=== PATIENT | male | born 1940 | race Caucasian/White ===

== ENCOUNTER 2016-03-29 | Outpatient (CLI) | payer MEDICARE | END 2016-03-29 14:10 | disposition critical access hospital (66) | DX: R55 Syncope and collapse (principal) | CPT/HCPCS: A0425; A0427 ==

== ENCOUNTER 2016-03-29 14:29 | Emergency (ER) | payer MEDICARE ==
[2016-03-29] MEDS ORDERED: SODIUM CHLORIDE 0.9% 500 ML IV ONE (14:53)
== END 2016-03-29 17:33 | disposition home or self-care (01) ==
DX: R55 Syncope and collapse (principal); E86.0 Dehydration; I12.0 Hypertensive chronic kidney disease with stage 5 chronic kidney disease or end stage renal disease; N18.6 End stage renal disease; Z99.2 Dependence on renal dialysis; I48.91 Unspecified atrial fibrillation; I48.92 Unspecified atrial flutter; R94.31 Abnormal electrocardiogram [ECG] [EKG]; Z79.82 Long term (current) use of aspirin; Z86.73 Personal history of transient ischemic attack (TIA), and cerebral infarction without residual deficits; Z87.19 Personal history of other diseases of the digestive system

== ENCOUNTER 2016-07-01 16:09 | Emergency (ER) | payer MEDICARE ==
[2016-07-01] MEDS ORDERED: SODIUM CHLORIDE 0.9% 500 ML IV ONE (16:20)
== END 2016-07-01 18:42 | disposition home or self-care (01) ==
DX: R53.1 Weakness (principal); S93.601A Unspecified sprain of right foot, initial encounter; W20.8XXA Other cause of strike by thrown, projected or falling object, initial encounter; I10 Essential (primary) hypertension; N28.9 Disorder of kidney and ureter, unspecified; I12.9 Hypertensive chronic kidney disease with stage 1 through stage 4 chronic kidney disease, or unspecified chronic kidney disease; N18.9 Chronic kidney disease, unspecified; Z99.2 Dependence on renal dialysis; I48.91 Unspecified atrial fibrillation; I48.92 Unspecified atrial flutter; Z79.82 Long term (current) use of aspirin; Z86.73 Personal history of transient ischemic attack (TIA), and cerebral infarction without residual deficits

== ENCOUNTER 2016-07-03 12:01 | Outpatient (CLI) | payer MEDICARE | END 2016-07-03 12:02 | disposition critical access hospital (66) | DX: R53.1 Weakness (principal) | CPT/HCPCS: A0425; A0429 ==

== ENCOUNTER 2016-07-03 12:26 | Inpatient (IN) | payer MEDICARE ==
[2016-07-03 13:09] LABS: BASOPHILS # (AUTO) 0.1 10^3/uL (0.0-0.1); EOSINOPHILS # (AUTO) 0.1 10^3/uL (0.0-0.7); EOSINOPHILS % (AUTO) 2.3 %; HCT - HEMATOCRIT 26.9 % (42.0-52.0); LYMPHOCYTES # (AUTO) 0.2 10^3/uL (1.5-3.5); LYMPHOCYTES % (AUTO) 4.2 %; MEAN CORPUSCULAR HEMOGLOBIN 35.7 pg (27.0-31.0); MEAN CORPUSCULAR HGB CONC 33.6 g/dL (32.0-36.0); MEAN CORPUSCULAR VOLUME 106.1 fL (80.0-94.0); MEAN PLATELET VOLUME 8.6 fL (7.4-11.4); MONOCYTES # (AUTO) 0.3 10^3/uL (0.0-1.0); MONOCYTES % (AUTO) 5.7 %; NEUTROPHILS # (AUTO) 5.1 10^3/uL (1.5-6.6); NEUTROPHILS % (AUTO) 86.8 %; NUCLEATED RED BLOOD CELLS AUTO 0.1 /100WBC; RED BLOOD COUNT 2.54 10^6/uL (4.70-6.10); RED CELL DISTRIBUTION WIDTH 17.8 % (12.0-15.0); UNCORRECTED WHITE BLOOD COUNT 5.8 x10^3/uL; WHITE BLOOD COUNT 5.8 x10^3/uL (4.8-10.8)
[2016-07-03 13:17] LABS: INR 3.8 (0.8-1.2); PT - PROTHROMBIN TIME 42.6 secs (9.9-12.6)
[2016-07-03 13:22] LABS: BILIRUBIN,TOTAL 0.8 mg/dL (0.2-1.0); CALCIUM 9.5 mg/dL (8.5-10.3); CREATININE 5.6 mg/dL (0.6-1.2); POTASSIUM 4.2 mmol/L (3.5-5.0); TOTAL PROTEIN 6.7 g/dL (6.7-8.2)
[2016-07-03] MEDS ORDERED: ACETAMINOPHEN 500 MG TABLET PO STA (13:22)
[2016-07-03] MEDS ORDERED: ACETAMINOPHEN 500 MG TABLET PO ONE (13:24)
--- NOTE | 2016-07-03 13:25 | ED Physician Documentation ---
History of Present Illness - Stated complaint Stated Complaint: WEAKNESS - Chief complaint Chief Complaint: General - History obtained from History obtained from: Patient, EMS - Additonal information Additional information: 76 yo male, dialysis dependent, MWF, nephro at [facility]. Fell last night,unable to get back up d/t weakness general. Feels achy. Unable to sit up unassisted. he is on warfarin for AFIB Review of Systems Ten Systems: 10 systems reviewed and negative Constitutional: reports: Myalgias, Fatigue. denies: Fever, Chills Eyes: denies: Loss of vision, Decreased vision Ears: denies: Drainage/discharge Nose: denies: Rhinorrhea / runny nose, Congestion Throat: denies: Sore throat Cardiac: denies: Chest pain / pressure, Palpitations Respiratory: denies: Dyspnea, Cough GI: denies: Abdominal Pain, Nausea, Vomiting, Bloody / black stool PD PAST MEDICAL HISTORY - Past Medical History Cardiovascular: Hypertension, Atrial flutter, Atrial fibrillation, Murmur, Other Neuro: CVA Endocrine/Autoimmune: Other GI: GI bleed, Other : Dialysis, Renal insuffiency, Other Psych: Depression - Past Surgical History Past Surgical History: Yes - Present Medications Home Medications: Ambulatory Orders Medication Instructions Recorded Confirmed Allopurinol 300 mg PO DAILY 07/27/13 07/03/16 Aspirin Chewable [[place] 81 mg PO DAILY 07/27/13 10/08/13 Aspirin] Calcitriol 0.25 mg PO DAILY 07/27/13 10/08/13 Cholecalciferol (Vitamin D3) 1,000 unit PO DAILY 07/27/13 10/08/13 [Vitamin D] Doxazosin [Cardura] 2 mg PO DAILY 07/27/13 10/08/13 Folic Acid 1 mg PO DAILY 07/27/13 10/08/13 Metoprolol Succinate 50 mg PO DAILY 07/27/13 10/08/13 Mirtazapine 45 mg PO DAILY 07/27/13 07/03/16 Pantoprazole Sodium 40 mg PO DAILY 07/27/13 10/08/13 Simvastatin 20 mg PO DAILY 07/27/13 10/08/13 Vit B Cmplx 3/FA/Vit C/Biotin 1 tab PO DAILY 07/27/13 10/08/13 [Nephro-Gabriel Rx Tablet] Vitamin B Complex 1 tab PO DAILY 07/27/13 10/08/13 Warfarin [Coumadin] 10 mg PO DAILY 07/27/13 07/03/16 buPROPion [Wellbutrin Sr] 150 mg PO DAILY 07/27/13 10/08/13 levETIRAcetam [Keppra] 500 07/03/16 - Allergies Allergies/Adverse Reactions: Allergies Allergy/AdvReac Type Severity Reaction Status Date / Time No Known Drug Allergies Allergy Verified 03/29/16 14:30 - Social History Does the pt smoke?: No Smoking Status: Never smoker Does the pt drink ETOH?: No Does the pt have substance abuse?: No - Family History Family history: reports: Non contributory - Immunizations Immunizations are current?: No - POLST Patient has POLST: No PD ED PE NORMAL - Vitals Vital signs reviewed: Yes - General General: Alert and oriented X 3, Other (PALE< GENERALLY WEAK< CANNOT SIT UP UNASSISTED) - HEENT HEENT: PERRL, EOMI - Neck Neck: Supple, no meningeal sign, No bony TTP - Cardiac Cardiac: No murmur, Other (IRREGULAR) - Respiratory Respiratory: No respiratory distress, Other (DIMINISHED AT BASES) - Abdomen Abdomen: Soft, Non tender - Back Back: No CVA TTP, No spinal TTP - Derm Derm: Normal color, Warm and dry - Extremities Extremities: No edema, No calf tenderness / cord - Neuro Neuro: Alert and oriented X 3, Normal speech - Psych Psych: Normal mood, Normal affect Results - Vitals Vitals: Vital Signs - 24 hr 07/03/16 12:29 Temperature 36.4 C L Heart Rate 108 H Respiratory 16 Rate Blood Pressure 119/69 O2 Saturation 97 Oxygen O2 Source Room air - Labs Labs: Laboratory Tests 07/03/16 07/03/16 07/03/16 12:25 12:25 12:25 WBC 5.8 RBC 2.54 L Hgb 9.0 L Hct 26.9 L MCV 106.1 H MCH 35.7 H MCHC 33.6 RDW 17.8 H Plt Count 182 MPV 8.6 Neut # 5.1 Lymph # 0.2 L [place] # 0.3 Eos # 0.1 Baso # 0.1 Absolute Nucleated RBC 0.01 Nucleated RBCs 0.1 PT 42.6 H INR 3.8 H Sodium 139 Potassium 4.2 Chloride 97 L Carbon Dioxide 28 Anion Gap 14.0 H BUN 36 H Creatinine 5.6 H Estimated GFR (MDRD) 10 L Glucose 184 H Calcium 9.5 Total Bilirubin 0.8 AST 16 ALT 14 Alkaline Phosphatase 46 Total Creatine Kinase 87 CK-MB (CK-2) Troponin I Total Protein 6.7 Albumin 3.3 Globulin 3.4 Albumin/Globulin Ratio 1.0 Lipase 34 07/03/16 12:25 WBC RBC Hgb Hct MCV MCH MCHC RDW Plt Count MPV Neut # Lymph # [place] # Eos # Baso # Absolute Nucleated RBC Nucleated RBCs PT INR Sodium Potassium Chloride Carbon Dioxide Anion Gap BUN Creatinine Estimated GFR (MDRD) Glucose Calcium Total Bilirubin AST ALT Alkaline Phosphatase Total Creatine Kinase CK-MB (CK-2) 2.1 Troponin I < 0.04 Total Protein Albumin Globulin Albumin/Globulin Ratio Lipase - Rads (name of study) CT Head and CXR Radiology: EMP read contemporaneously (NAD, cardiomegaly s/p AV replacement) PD MEDICAL DECISION MAKING - ED course ED course: 76-year-old gentleman with multiple comorbidities including A. fib on warfarin and dialysis dependent presents with unexplained generalized weakness. He has stable anemia, no significant electrolyte abnormalities, and negative head CT and chest x-ray. He is too weak to sit up unassisted and will be placed in observation. Spoke with Dr. Leon for this at 1420. Departure - Departure Disposition: ED Place in Observation Clinical Impression: Generalized weakness Atrial fibrillation Qualifiers: Atrial fibrillation type: permanent Qualified Code(s): I48.2 - Chronic atrial fibrillation Condition: Stable
[2016-07-03 13:27] LABS: TROPONIN I < 0.04 ng/mL (<0.49)
[2016-07-03 13:29] LABS: CREATINE KINASE MB 2.1 ng/mL (0.6-6.3)
--- NOTE | 2016-07-03 14:12 | CT Preliminary Report ---
Exam: CT Head W/O IMPRESSION: 1. No intracranial bleed or mass effect. 2. Atherosclerosis. [facility] SITE ID: [id number]
--- NOTE | 2016-07-03 14:16 | XRAY Preliminary Report ---
Exam: XR Chest 2 View PA/LAT IMPRESSION: 1. Cardiomegaly with linear atelectasis left lung base. 2. Status post aortic valve replacement. [facility] SITE ID: [id number]
--- NOTE | 2016-07-03 14:19 | CT Report ---
EXAM: CT HEAD EXAM DATE: 07/03/2016 01:47 PM. CLINICAL HISTORY: Head injury, anticoagulated. COMPARISON: Head CT 03/24/2014. TECHNIQUE: Multiaxial CT images were obtained from the foramen magnum to the vertex. IV contrast: Non e. Reformats: Coronal. In accordance with CT protocol optimization, one or more of the following dose reduction techniques w ere utilized for this exam: automated exposure control, adjustment of mA and/or KV based on patient s ize, or use of iterative reconstructive technique. FINDINGS: Parenchyma: Garcia-white differentiation is distinct. No mass effect or intracranial bleed. Extraaxial Spaces: Normal for age. No subdural or epidural collections identified. Ventricles: Normal in size and position. Sinuses: Imaged paranasal sinuses, orbits, and mastoids show no significant abnormality. Bones: No evidence of fracture or calvarial defect. Other: Atherosclerosis. IMPRESSION: 1. No intracranial bleed or mass effect. 2. Atherosclerosis. [facility] Referring Provider Line: [phone] SITE ID: [id number]
--- NOTE | 2016-07-03 14:19 | XRAY Report ---
EXAM: CHEST RADIOGRAPHY EXAM DATE: 07/03/2016 01:54 PM. CLINICAL HISTORY: Weak, abnormal lung sounds. COMPARISON: Chest x-ray 03/24/2014. TECHNIQUE: 2 views. FINDINGS: Lungs/Pleura: No pleural effusion or pneumothorax. Linear atelectasis left lung base. Mediastinum: Cardiomegaly with atherosclerotic calcification. Status post aortic valve replacement. Other: Sclerosis within the left proximal humerus, likely a small enchondroma. IMPRESSION: 1. Cardiomegaly with linear atelectasis left lung base. 2. Status post aortic valve replacement. [facility] Referring Provider Line: [phone] SITE ID: [id number]
[2016-07-03] MEDS ORDERED: SODIUM CHLORIDE FLUSH 0.9% 10 ML SYRINGE IVP PRN (15:13)
[2016-07-03] MEDS ORDERED: SODIUM CHLORIDE 0.9% 1,000 ML IV SCH (17:00)
[2016-07-03] MEDS ORDERED: INSULIN REGULAR HUMAN 100 UNIT/1 ML 10 ML MDV SUBQ SCH (18:00)
[2016-07-03] MEDS ORDERED: ACETAMINOPHEN 500 MG TABLET PO PRN (18:02)
[2016-07-03] MEDS: CALCIUM ACETATE 667 MG CAPSULE PO SCH (18:13)
[2016-07-03 18:28] LABS: HEMOGLOBIN A1C 0.26 g/dL
[2016-07-03] MEDS ORDERED: WARFARIN 2.5 MG TABLET PO SCH (19:00)
[2016-07-03] MEDS: INSULIN ASPART 300 UNIT/3 ML PEN SUBQ SCH (21:21)
[2016-07-03] MEDS: ATORVASTATIN 10 MG TABLET PO SCH (21:24)
[2016-07-03] MEDS: levETIRAcetam 250 MG TABLET PO SCH (21:24)
[2016-07-03] MEDS: MIRTAZAPINE 15 MG TABLET PO SCH (21:25)
[2016-07-03] MEDS: oxyCODONE 5 MG TABLET PO PRN (22:49)
[2016-07-04] MEDS: SODIUM CHLORIDE FLUSH 0.9% 10 ML SYRINGE IVP SCH ×4 (01:10→20:26)
[2016-07-04 05:52] LABS: HCT - HEMATOCRIT 25.5 % (42.0-52.0); HGB - HEMOGLOBIN 8.3 g/dL (14.0-18.0); MEAN CORPUSCULAR HGB CONC 32.6 g/dL (32.0-36.0); MEAN CORPUSCULAR VOLUME 107.2 fL (80.0-94.0); MEAN PLATELET VOLUME 9.3 fL (7.4-11.4); RED BLOOD COUNT 2.38 10^6/uL (4.70-6.10); RED CELL DISTRIBUTION WIDTH 17.1 % (12.0-15.0); WHITE BLOOD COUNT 5.8 x10^3/uL (4.8-10.8)
[2016-07-04 06:04] LABS: PT - PROTHROMBIN TIME 52.6 secs (9.9-12.6)
[2016-07-04 06:07] LABS: CALCIUM 9.2 mg/dL (8.5-10.3); CREATININE 6.9 mg/dL (0.6-1.2); POTASSIUM 4.4 mmol/L (3.5-5.0)
[2016-07-04 06:12] LABS: INR 4.6 (0.8-1.2)
[2016-07-04] MEDS: ALLOPURINOL 100 MG TABLET PO SCH (08:25)
[2016-07-04] MEDS: CALCIUM ACETATE 667 MG CAPSULE PO SCH ×3 (08:25→16:32)
[2016-07-04] MEDS: INSULIN ASPART 300 UNIT/3 ML PEN SUBQ SCH ×4 (08:25→20:26)
[2016-07-04] MEDS: POLYETHYLENE GLYCOL 3350 17 GM PACKET PO SCH (08:26)
[2016-07-04] MEDS ORDERED: SODIUM CHLORIDE 0.9% 1,000 ML IV SCH ×2 (09:00→12:10)
[2016-07-04] MEDS ORDERED: FLUDROCORTISONE 0.1 MG TABLET PO ONE (10:10)
--- NOTE | 2016-07-04 10:55 | PROVIDER PROGRESS NOTE ---
Subjective - Prog Note Date Prog Note Date: 07/04/16 Prog Note Time: 10:53 - Subjective Pt reports feeling: No change (hasnt tried upright yet, doesnt notice much different since the fluid not much appetite, still doesnt recall if AVR is porcine vs mechanical I cant do it (stand at bedside w/ PT) He did not think his pain was gout, BUT, after prednisone today, both foot AND R wrist pain improved "I dont remember " (if at least sitting up at bedside was easier than yesterday)) Subjective: Per , AVR is porcine notes patient was grocery shopping, walking, driving up til ~ 1.5 wks ago (drives, but walks very slowly, IS generally weak; Has "perked up" in past with PRBC's He saw Dr. Mariano ~ 2 wks ago His PCP is in [place], [place] recall her name, [place] She says his fluid limit at home is "4 oz" (??) when I asked He likes to eat "junk"/ had a drive thru [phone] the other day. Denies that he is protein restricted "they want him to eat" she says his color is good. looks better than a few days ago Current Medications - Current Medications Current Medications: Active Medications Generic Name Dose Route Start Last Admin Trade Name Freq PRN Reason Stop Dose Admin Acetaminophen 1,000 mg 07/04/16 11:22 07/04/16 11:28 Tylenol PO 1,000 mg Q4HR PRN Administration Pain or Fever > 38C (100.4F) Acetaminophen 650 mg 07/04/16 11:19 Tylenol PO 07/04/16 21:00 ONCE PRN BLOOD TRANSFUSION Allopurinol 300 mg 07/04/16 09:00 07/04/16 08:25 Zyloprim PO 300 mg DAILY SHEELA Administration Atorvastatin Calcium 10 mg 07/03/16 21:00 07/03/16 21:24 Lipitor PO 10 mg QPM SHEELA Administration Calcium Acetate 1,334 mg 07/03/16 17:00 07/04/16 16:32 Phoslo PO 1,334 mg TIDWM SHEELA Administration Insulin Aspart 1 - 5 unit 07/03/16 21:00 07/04/16 12:42 Novolog SUBQ 1 unit 0800,1200,1700,2100 SHEELA Administration Protocol Levetiracetam 500 mg 07/03/16 21:00 07/03/16 21:24 Keppra PO 500 mg QPM SHEELA Administration Mirtazapine 45 mg 07/03/16 21:00 07/03/16 21:25 Remeron PO 45 mg QPM SHEELA Administration Oxycodone HCl 5 mg 07/03/16 22:10 07/04/16 16:32 Roxicodone PO 5 mg Q4HR PRN Administration PAIN Polyethylene Glycol 17 gm 07/04/16 09:00 07/04/16 08:26 Miralax PO 17 gm DAILY SHEELA Administration Prednisone 40 mg 07/04/16 13:00 07/04/16 12:43 Deltasone PO 40 mg DAILYWM SHEELA Administration Sodium Chloride 10 ml 07/03/16 15:13 07/03/16 18:13 Normal Saline Flush 0.9% IVP 10 ml PRN PRN Administration NEEDED PER PROVIDER ORDERS Sodium Chloride 10 ml 07/03/16 22:00 07/04/16 14:10 Normal Saline Flush 0.9% IVP 10 ml Q8HR SHEELA Administration Allopurinol 300 mg PO DAILY 07/27/13 Mirtazapine 45 mg PO QPM 07/27/13 Simvastatin 20 mg PO QPM 07/27/13 Warfarin [Coumadin] 10 mg PO DAILY 07/27/13 Calcium Acetate [Calcium Acetate] 1,334 mg PO TIDWM 07/03/16 Fludrocortisone Acetate [Fludrocortisone Acetate] 0.1 mg PO TID PRN 07/03/16 Midodrine HCl [Midodrine HCl] 10 mg PO BID PRN 07/03/16 levETIRAcetam [Keppra] 500 mg PO QPM 07/03/16 Objective - Vital Signs/Intake & Output Reviewed Vital Signs: Yes Vital Signs: Vital Signs x48h Temp Pulse Resp BP BP Pulse Ox 07/04/16 08:48 36.4 C L 104 H 102/65 07/04/16 04:11 36.7 C 105 H 18 114/68 97 have not yet checked orthostatics will reevaluate once gets midodrine (getting one of his home 10 mg midodrines) Intake & Output: Intake & Output 07/01/16 07/02/16 07/03/16 07/04/16 23:59 23:59 23:59 23:59 Intake Total 840 636 Balance 840 636 - Objective General Appearance: positive: No acute distress, Other (lying flat in bed, awake , alert, flat affect, Looks a bit brighter than yesterday and quicker to respond. says he is "stoic" Winces when localized area R lateral foot touched. No erythema,mild soft tissue swelling also winces when PT touched R hand to get him up Didnt eat much of breakfast tray, but downed an Ensure very quickly) ENT: positive: Other (dry tounge) Neck: positive: Other (old scar CEA R neck) Respiratory: positive: No respiratory distress, Breath sounds nml (auscultated when upright sitting at bedside). negative: Rales Cardiovascular: positive: Regular rate & rhythm, No murmur (I do not appreciate a murmur nor click), Other (no) Abdomen: positive: Nml bowel sounds, No distention, Other (scrotal swelling on left, nontender,nonerythematous, does not seem like scrotal edema.). negative: Tenderness Skin: positive: Warm, Dry, Other (no bruising, bleeding, other than ecchymotic area noted R forehead on admit) Extremities: positive: No pedal edema Neurologic/Psychiatric: positive: Oriented x3, Other (flat affect, very pleasant ) - Lab Results Fish Bones: 07/04/16 05:04 07/04/16 05:04 Other Labs: Lab Results x24hrs 07/04/16 07/04/16 07/04/16 Range/Units 05:04 05:04 05:04 WBC 5.8 (4.8-10.8) x10^3/uL RBC 2.38 L (4.70-6.10) 10^6/uL Hgb 8.3 L (14.0-18.0) g/dL Hct 25.5 L (42.0-52.0) % MCV 107.2 H (80.0-94.0) fL MCH 35.0 H (27.0-31.0) pg MCHC 32.6 (32.0-36.0) g/dL RDW 17.1 H (12.0-15.0) % Plt Count 183 (130-450) 10^3/uL MPV 9.3 (7.4-11.4) fL PT 52.6 H (9.9-12.6) secs INR 4.6 H* (0.8-1.2) Sodium 138 (135-145) mmol/L Potassium 4.4 (3.5-5.0) mmol/L Chloride 99 L (101-111) mmol/L Carbon Dioxide 24 (21-32) mmol/L Anion Gap 15.0 H (6-13) BUN 46 H (6-20) mg/dL Creatinine 6.9 H (0.6-1.2) mg/dL Estimated GFR (MDRD) 8 L (>89) Glucose 139 H (70-100) mg/dL Glycated Hemoglobin (4.6-6.2) % Estim Average Glucose (70-100) Calcium 9.2 (8.5-10.3) mg/dL /08/14 Range/Units 18:00 WBC (4.8-10.8) x10^3/uL RBC (4.70-6.10) 10^6/uL Hgb (14.0-18.0) g/dL Hct (42.0-52.0) % MCV (80.0-94.0) fL MCH (27.0-31.0) pg MCHC (32.0-36.0) g/dL RDW (12.0-15.0) % Plt Count (130-450) 10^3/uL MPV (7.4-11.4) fL PT (9.9-12.6) secs INR (0.8-1.2) Sodium (135-145) mmol/L Potassium (3.5-5.0) mmol/L Chloride (101-111) mmol/L Carbon Dioxide (21-32) mmol/L Anion Gap (6-13) BUN (6-20) mg/dL Creatinine (0.6-1.2) mg/dL Estimated GFR (MDRD) (>89) Glucose (70-100) mg/dL Glycated Hemoglobin 4.8 (4.6-6.2) % Estim Average Glucose 91 (70-100) Calcium (8.5-10.3) mg/dL Assessment/Plan - Problem List (1) Orthostasis Impression: suspect modest overdialyzed. tolerated 1000cc NS last night, no longer orthostatic (PT checked when getting upright), and gave midodrine dose, but still w/ very weak LE's (weak quads) started 500cc more fluid, but in discussing ? contribution of anemia, notes good response to RBC's in past: will transfuse 1 unit (2) Volume depletion Impression: As above, 1000cc last PM, and will get 250-300cc 1 unit RBC's. Will be conservative w/ any more volume as cant do HD here, but no s/s of overload (3) ESRD (end stage renal disease) Impression: MWF HD. If not ambulatory tomorrow, will tranfer to [facility] for HD continue phos Lo, serum bicarb, mag, ca in reasonable range; Phos modestly elevated (CA ok); will continue phoslo and defer to renal for further management (4) Supratherapeutic INR Impression: likely due to poor PO intake. transaminases ok Has porcine valve, not mechanical so goal 2-3 for afib hold tonight, recheck INR in am has been taking 10 mg/ day, may need lesser dose/more frequent checks if has had weight loss recheck INR in am, suspect will be holding again tomorrow (5) Generalized weakness Impression: no s/s infection Blood cx neg R foot pain does seem to be gout as responded to prednisone (not infection) slow decline w/ ESRD+ hypovolemia Plan:(already hydrated),+ anemia Plan; (giving 1 unit PRBC), + ? poor po intake Plan Encourage Ensure BID; ? nutrition eval in am , (or [facility] vat skimmer to see) PT unable to ambulate/ or stand today; if not ambulatory in AM after RBC, willl need transfer to [facility] for HD and eval for SNF (has been at a [facility] before) (6) Anemia, chronic renal failure Impression: May be still a bit hemoconcentrated even after 1LNS (dont want to overdo volume on him w/ no HD here) His weakness may be related to anemia. So will transfuse 1 unit PRBC's ([facility] if [facility] enuf to go tomorrow so will transfuse here) ? assume he gets epo at HD/ by [facility] (7) Atrial fibrillation Impression: rate controlled on no med as above INR supraTx; holding warfarin; goal 2-3 Qualifiers: Atrial fibrillation type: permanent Qualified Code(s): I48.2 - Chronic atrial fibrillation (8) Gout Impression: "hasnt had for years" on allopurinol but w/ volume down, his foot and hand pain likely gout as responded to Pred will give ~ 4 more days Pred continue allopurinol (9) Hyperphosphatemia Impression: as above, sl. elevated, but Ca ok continue Phos Lo, will defer to nephrology (10) Depression Impression: stable, continue mirtazapine (for appetite as well
[2016-07-04] MEDS ORDERED: ACETAMINOPHEN 325 MG TABLET PO PRN ×2 (10:57→11:19)
[2016-07-04 11:01] LABS: MAGNESIUM 2.1 mg/dL (1.7-2.8); PHOSPHORUS 5.6 mg/dL (2.5-4.6)
[2016-07-04] MEDS ORDERED: MIDODRINE 10 MG TAB PO ONE (11:15)
[2016-07-04] MEDS: ACETAMINOPHEN 500 MG TABLET PO PRN ×2 (11:28→20:25)
[2016-07-04] MEDS: predniSONE 20 MG TABLET PO SCH (12:43)
--- NOTE | 2016-07-04 12:53 | HISTORY & PHYSICAL EXAMINATION ---
DATE OF ADMISSION: 07/03/2016 PRIMARY PROVIDER: No longer seeing Dr. Ortiz. New female physician up near [place]. "we really like her" WAREHOUSE LOGISTICS COORDINATOR: Dr. Hamlin. PCP: Patient/ cant recall PCP name. He is also seeing Dr. Ortega for management of bladder cancer. 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 once annual treatment"per . I do not have their names. CHIEF COMPLAINT: "I fell or rather slid to the floor from Rich while watching the ballgame with my and then could not get up so I was on the hardwood floor all night with a blanket". HISTORY OF PRESENT ILLNESS: The patient a 76-year-old man with endstage kidney disease, on MWF HD at the [facility]. who presented to the emergency room today when his could not get him up. Initially he told me he sank into a Rich and could not get up. He denies that there was a fall and later he said that yesterday he felt when I say he told me he did not actually fall he says well I bora slipped towards the floor and I could not get up by , my and I watched the ball game and I stayed on the hardwood floor with a blanket and evidently could still not get up this morning. He denies that he had any shaking chills (also no rigors w/ AV fistula access at HD this week), chest pain, lightheadedness or shortness of breath or fever. He says he simply could not get up. There was no focal weakness. He said he normally gets around the house with a walker and when he goes to dialysis he usually goes in a wheelchair with paratransit. He says that they insist on a wheelchair; when I asked when he was last at his usual state of strength he cannot really qualify or quantify when he last felt stronger, but it sounds like he could get up and around as well this morning. His notes that he has been slowly getting weaker this week. 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 (although he is SLOW) getting to the car. He cannot elaborate on whether there are any particular problems at dialysis yesterday. He says he was not feeling well this week without any specific complaints, but he said "there is a threshold for dialysis and they still dialyze me" . Takes midodrine or florinef if does not meet BP criteria for dialyssis. Doesnt recall if that was necessary this week He was in the emergency room 3 days ago for ankle pain. This was evidently diagnosed as a sprain and he was sent out with a walking boot. However, he denies falling or that there was any reason for him to have gotten a sprain. He says the pain is primarily the instep and there is some mild erythema to his forefoot and toes. Of note there is a diagnosis of peripheral arterial disease on an old H and P from approximately 3 years ago. He, however, denies that he has peripheral arterial disease. Also regarding the weakness, when he was last here he had moderate aortic stenosis but he has already had an aortic valve repair. He can not recall if this is porcine or mechanical. (addendum after speaking w/ ; porcine) He does note that his dry weight is 187 pounds. He did not suggest that they dialyzed more than usual yesterday. He is also is unable to say whether or not he may have had some actual weight loss recently, which was change his dry weight. The hip hop dance instructor did check orthostatics and they were unable to check standing; however, lying he is 100/65 with a heart rate of 96 and when measured sitting they documented a heart rate of 133 and 116 with a systolic that went up to the mid one-teens. He was not hypoxic with a room air oxygen saturation of 96-97% and there no symptoms referable to his chest and he had no cough and shortness of breath. In the ER he has not received any particular intervention other than a chest x-ray which shows cardiomegaly with linear atelectasis in the lung base and evidence of aortic valve replacement. A head CT showed no acute findings, no bleed or mass effect, and atherosclerosis. He says that he last Dr. Hamlin on June 25. PAST MEDICAL HISTORY: 1. End-stage renal disease on Tuesday, Tuesday, Tuesday hemodialysis [facility], history of nephrectomy from renal cell carcinoma in 2005, and presumed partial nephrectomy for which he reports was a malignancy also, on the opposite kidney. (He insists he has no kidneys; I do not have detail) 2. History of aortic stenosis, status post valve repair (confirmed porcine,) 3)atrial fibrillation on warfarin, 4)history of gout on allopurinol "no gout in years" 5), history of anemia of chronic disease 6) ? 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 Ortega. 14.. Also reports bladder cancer, which sounds like it was treated with BCG ( currently. SURGICAL HISTORY: Complete nephrectomy, I do not know which side and what I presume to be a partial nephrectomy on the underside, 2) right carotid endarterectomy, 3AV fistula on the left forearm. ALLERGIES: HE HAS NO KNOWN DRUG ALLERGIES. 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 Smoker, he has never smoker. Alcohol, he has not had a drink in years. He has no substance abuse. FAMILY HISTORY: There is no family history of malignancy. Code status, prior to admission he was A FULL CODE. He says that at this point he would not want that so he is a DO NOT RESUSCITATE. REVIEW OF SYSTEMS: CONSTITUTIONAL: As above no fevers, diaphoresis or night sweats. Denies specific weight loss or weight gain although this is clear. EAD, EARS, EYES. NOSE AND THROAT: No vision changes, trouble chewing or swallowing. No neck stiffness. No sore throat. CARDIOVASCULAR: No chest pain or palpitations. No edema. No near syncope and no palpitations with his atrial fibrillation. RESPIRATORY: No cough or wheezing or shortness of breath. No orthopnea. GASTROINTESTINAL: He indicates that he is hungry and says "what is on the menu" . No melena or hematochezia. No abdominal pain. I did not inquire whether he has any urine output was, however I will ask him that. MUSCULOSKELETAL: He does report that his right ankle is tender and again this was treated as an ankle sprain 2 days ago; he did not pay attention to whether there was any erythema at the base of his foot. He denies that he has peripheral arterial disease, he specifically denies calf pain. SKIN. He denies any new skin lesions or rash. NEUROLOGIC: No history of seizure disorder. He is Keppra. HEMATOLOGIC: He reports a history of lymphoma as far as he knows it is in remission. Denies any bruising or bleeding and denies that he has anywhere recently for infection or antibiotics. MEDICATIONS: went thru his bag of pills; and pharmacist did med rec 1. Allopurinol 300 mg 1 tablet daily. 2. Nephro-Gabriel 1 tablet once daily. 3. Warfarin 10 mg once daily. 4. Mirtazapine 45 mg 1 tablet at bedtime. 5. Midodrine 10 mg 1 tablet 3 times daily if needed (he says this is only if low BP at dialysis) and of note another bottle of midodrine in the pocket of his vest. The bottle's date is July 18, 2015, may refill 11 times by June 23, 2016. 6. There is another bottle of Mirtazapine 30 mg once daily at bedtime and mirtazapine dose will be confirmed... later confirmed he is taking just the 45 mg dose 7. Keppra 500 mg 1 tablet by mouth daily at bedtime . 8. Florinef 0.1 mg tid prn, which Of note, the bottle is empty 0.1 mg 1 tablet by mouth twice daily. Also when I found the bottle of midodrine in his coat packet there were a few large blue capsules which do not correspond to any of the pills in the pill bottle. 9) Calcium acetate 1334 mg 3 times daily p.o 10) simvastatin 20 mg p.o. q.p.m PHYSICAL EXAM VITAL SIGNS: He is afebrile 36.4 at 1230; his heart rate 106 to 108 and it was 110 when I saw him in the emergency room, blood pressure 119/69, and 97/59, respiratory rate 16, and oxygenation 96-97% on air. He had orthostatics as I described in the HPI. GENERAL: He is a very pleasant but a very flat affect gentleman, he who appears actually somewhat younger than his stated age. He is slow to respond, but appropriate and actually indicates that he appreciate that that "someone is asking a 76-year-old man all these questions and realizing that he can answer them". HEAD, EYES, EARS, NOSE and THROAT: He is normocephalic, atraumatic other than an ecchymotic area on his right forehead that he can not remember where it is from. He denies pain. Extraocular movements are intact. Pupils are approximately 2 mm. Nonmuddy sclera and injected bilaterally. His oral mucosa is dry. NECK: Supple. There is no appreciable lymphadenopathy. He has a right well- healed scar from a . CHEST: He is lying flat, his respirations are unlabored. He is oxygenating in the 90s on room air. There is no cough. Anteriorly he is clear to auscultation in . There is no cyanosis. HEART: Is a regular S1, S2 with no appreciable click at this time; however, ____ ____emergency room and . PERIPHERY: Notable for no edema and no diaphoresis. ABDOMEN: Rounded with positive bowel sounds. Soft. Nontender. There is a well- healed midline scar. There is no appreciable organomegaly and no pain on palpation. EXTREMITIES: Notable for a left upper arm AV fistula with a strong thrill and bruit. His hands are bilaterally notable for a lot of well healed scars. His right foot has a somewhat on the right forefoot and toes. He is quite tender when I touched his instep; his ankle appears along compared with the side and actually similar I would not qualify as edema. NEUROLOGIC: As above, he is alert, but slow to respond; he answers questions somewhat vaguely. Cranial nerves 2-12 are intact. As noted, he equal and reactive pupils. Extraocular movements intact with equal eyebrows, ____ ____cheeks and tongue is midline. Shoulder shrug is symmetric and . Gait was not assessed. I did not rapid alternating of movements. His strength is equal bilaterally with approximately 4/5 bilaterally. Able to raise hand over head, 4/5 shoulder flexion bilaterally and 3/5 hip flexion bilaterally and 5/5 dorsiflexion, plantar flexion. DIAGNOSTIC STUDIES: Sodium is 139, potassium 4.2, chloride 97, bicarbonate 28, BUN 36, creatinine 5.6, glucose 184. Troponin was less than 0.04. Albumin 3.3, lipase 34. White count 5.8, hemoglobin 9.0, hematocrit 26.9, platelets 182,000. INR 3.8. IMAGING: Chest x-ray as noted there is atelectasis of left lung base. A head CT with no acute findings. An EKG was not done in the ER but will be obtained given a atrial fibrillation. that the medication list regarding the note that the bottles daily is a 2016 also notes a refill 11 times above. He says that he last saw Dr. Hamlin on 06/17/2016. Medication list in chart. The pharmacist will still reconcile the medications, however, looking at the emergency room list includes a number of medications, which the patient does not have in his bag including Calcitriol, cholecalciferol, doxazosin and metoprolol succinate and pantoprazole and simvastatin and Wellbutrin, none of which are in the bag which the ER gave us. ASSESSMENT AND PLAN: 1. Profound weakness in an endstage renal disease patient. He does not appear septic and there is no localized finding that would suggest a source of infection; however, given his ESRD we will check a set of blood cultures and a chest x-ray was clear. The right foot does not appear cellulitic, it might be gout. Dont suspect calciphylaxis based on current appearance. I will try Prednisone and continue if it is helpful. He was orthostatic on presentation so I suspect volume depletion, ?if he's getting overdialyzed (especially taking midodrine to "qualify" to get the HD.) Will hydrate gently overnight starting at 75 mL per hour for 1 liter and to be reevaluated . We will see if we can get standing weight tomorrow; he says his dry weight is 187 pounds. We will recheck orthostatics in the morning and get a PT eval. Will consider PRBC's even though current hgb/hct ok. said he "perked" up in past w/ RBC's. Has been in SNF before near [facility]. ED gave him a walking boot 2 days ago which might help with the pain when trying ambulation. (plain film ok inED a few days ago.) 2. Atrial fibrillation. His rate is controlled, but slightly fast at this time at 100. above suspect volume depletion.We will check an EKG if he did not have one done in the ER and reeval rate after volume. There is no rate control medication in the bag was given. No longer on metoprolol succinate listed in old Medlist In EMR (from a few yrs ago). 3. Chronic anticoagulation. His INR is supratherapeutic at 3.8; confirmed this is a porcine, not mechanical AVR, so goal 2-3 for his afib. May be supratherapeutic due to poor PO last few days. transaminases ok. . Will hold warfarin today and recheck in am.s Warfarin today. He takes 10 mg a day, maybe conservative given 5 mg this evening and confirm what kind of valve he has and what the goal for is an INR. 3. Hyperglycemia. Denies any history of diabetes. He is on no medications for that. We will do fingerstick blood glucose q.i.d. and bedtime and I will start with a sliding scale. (A1C was under 5) so will stop FSBG, and not be terribly concerned if mild hyperglycemia on prednisone for his gout 4. Anemia, this is most likely anemia of chronic disease related to endstage kidney disease. It does not warrant a transfusion and treatment at this time but will reconsider this if weakness not improved in am after volume; I do not know whether he is receiving any form with erythropoietin as an outpatient if he think the past. 5. Venous thromboembolism prophylaxis. He is already on therapeutic warfarin so that is not necessary 6) ESRD; m/w/f HD, if not with better strenght tomorrow allowing outpt HD, will need to transfer ([facility] will check mag, phos, [place]. CODE STATUS. Discussed with the patient and he indicates that at this point he would not want that the resuscitation in the event of cardiopulmonary arrest so he a DO NOT RESUSCITATE. JOB #: [id number] EXT JOB #:[id number] [facility] SHOREObdulio
[2016-07-04] MEDS: oxyCODONE 5 MG TABLET PO PRN ×2 (16:32→23:53)
[2016-07-04] MEDS: MIRTAZAPINE 15 MG TABLET PO SCH (20:23)
[2016-07-04] MEDS: levETIRAcetam 250 MG TABLET PO SCH (20:25)
[2016-07-04] MEDS: ATORVASTATIN 10 MG TABLET PO SCH (20:25)
[2016-07-05 04:15] LABS: HCT - HEMATOCRIT 26.5 % (42.0-52.0); HGB - HEMOGLOBIN 8.6 g/dL (14.0-18.0); MEAN CORPUSCULAR HEMOGLOBIN 33.9 pg (27.0-31.0); MEAN CORPUSCULAR HGB CONC 32.4 g/dL (32.0-36.0); MEAN CORPUSCULAR VOLUME 104.5 fL (80.0-94.0); MEAN PLATELET VOLUME 8.7 fL (7.4-11.4); RED BLOOD COUNT 2.54 10^6/uL (4.70-6.10); RED CELL DISTRIBUTION WIDTH 19.2 % (12.0-15.0)
[2016-07-05 04:21] LABS: INR 3.5 (0.8-1.2); PT - PROTHROMBIN TIME 39.9 secs (9.9-12.6)
[2016-07-05 04:33] LABS: CALCIUM 9.6 mg/dL (8.5-10.3); PHOSPHORUS 7.4 mg/dL (2.5-4.6); POTASSIUM 5.5 mmol/L (3.5-5.0)
[2016-07-05 04:34] LABS: CREATININE 8.8 mg/dL (0.6-1.2)
[2016-07-05] MEDS: SODIUM CHLORIDE FLUSH 0.9% 10 ML SYRINGE IVP SCH (06:12)
[2016-07-05] MEDS: INSULIN ASPART 300 UNIT/3 ML PEN SUBQ SCH ×2 (10:02→11:48)
[2016-07-05] MEDS: predniSONE 20 MG TABLET PO SCH (10:03)
[2016-07-05] MEDS: POLYETHYLENE GLYCOL 3350 17 GM PACKET PO SCH (10:05)
[2016-07-05] MEDS: CALCIUM ACETATE 667 MG CAPSULE PO SCH ×2 (10:34→11:42)
[2016-07-05] MEDS: ALLOPURINOL 100 MG TABLET PO SCH (10:34)
[2016-07-05] MEDS: ACETAMINOPHEN 500 MG TABLET PO PRN (11:43)
[2016-07-05 13:43] VITALS: BP 125/60
--- NOTE | 2016-07-06 06:20 | DISCHARGE SUMMARY ---
DATE OF ADMISSION: 07/03/2016 [facility] [place] 07/05/2016. TRANSFER SUMMARY PRIMARY VEHICLE RETURN ASSOCIATE: is Dr. Hamlin. PRIMARY PROVIDER: No longer Dr. Ortiz, New PCp at the [facility], but they forgot her name. PRIMARY DISCHARGE DIAGNOSES 1. Profound weakness, likely related to volume depletion and anemia. 2. End-stage renal disease, on Tuesday, Tuesday, Tuesday dialysis. 3. Supratherapeutic INR. 4. Acute gout flare. 5. Atrial fibrillation 6.) Anemia of chronic disease/Anemia related to ESRD. CONSULTATIONS: None. PROCEDURES: 1 unit of packed red blood cells. DIAGNOSTIC IMAGING STUDIES On 07/02, chest x-ray: Cardiomegaly with linear atelectasis at left lung base and status post aortic valve replacement. Head CT on 07/03/2016: No intracranial bleed or mass effect, atherosclerosis, no acute abnormality. DIAGNOSTIC LABORATORY STUDIES ON ADMISSION: 07/03, CBC white count 5.8, hemoglobin 9.0, hematocrit 26.9, MCV 106.1, platelets 182, 000. On 07/05 following 1 unit of packed cells, white count 5.0, hemoglobin 8.6 , hematocrit 26.5, platelets 189,000 and this does reflect also 1000 mL of IV fluid. INR on admission, INR was 3.8. Coumadin was held, on the next day INR was 4.6. Coumadin was held again and INR was 3.5. Admission chemistries: Sodium 139, potassium 4.2, chloride 97, bicarbonate 28, BUN 36, creatinine 5.6, and glucose 184. Glycosylated hemoglobin was 4.8, calcium was 9.5, total bilirubin 0.8, AST 16, ALT 14. A troponin was less than 0.04. Albumin was 2.9. [facility], his labs had changed. The potassium was 5.5, bicarbonate stable at 24, BUN 66, creatinine 8.8. Phosphorus increased from 7.4 from a phosphorus of 5.6. Magnesium was 2.1. BRIEF HOSPITAL COURSE BY PROBLEM 1. Please see the history and physical from 07/03 for details. Briefly, the patient is a Tuesday, Tuesday, Tuesday dialysis patient at the [facility]. It sounds like he has had a slow, but steady decline in his strength over the past week. He was, however, still receiving his dialysis. Approximately half a week prior to that, he was still driving. On the night before admission, he was so weak he could not get off the floor, so elected to sleep on the hardwood floor with a blanket and was brought into the emergency room for weakness. As above, there are no localizing signs of infection. He did have blood culture sent, which remained negative to date in addition to above the named studies. The news writer had done orthostatics, he was orthostatic, and exam and history were most consistent with volume depletion, at least partially responsible for his weakness. He does also note that he takes midodrine if his blood pressure is too low prior to dialysis. He was gently hydrated overnight with a conservative single liter of fluid and was somewhat brighter in the morning. Orthostatics were resolved and he did receive a midodrine dose prior to physical therapy trying to work with him. Although he was able to sit up to the sitting position with their assistance, his quadriceps strength was too weak to be able to stand despite heavy 2 person assist. In reviewing his data again and history in speaking with his , it sounds as though he has had improvement with red cell transfusions in the past and he is modestly anemic with values as above. He did receive 1 unit of packed red cells. On the subsequent day, 07/05, he was markedly improved and his leg strength on exam in bed was approximately 4/5 hip flexor strength supine compared to a 3/5 the prior day, and he was able to independently switch position to a sitting position; however, he was still too weak to stand (but almost did with a walker) . Since he was not well enough to leave to his outpatient dialysis center, he was transferred to [facility] after discussion with Dr.Adam Villa and will go there for his dialysis, as well as for further evaluation by physical therapy for possibly skilled facility placement as well as ongoing supportive care for his chronic medical problems. He does not have any cognitive deficits with this weakness. 2. Chronic anticoagulation for atrial fibrillation. His INR on presentation was supratherapeutic, (values noted above) so Coumadin was held. It was still supratherapeutic on the subsequent morning, as well as on the day of discharge. We will defer further warfarin dosing to the hospitalists who are picking up; however, once his diet has improved with improved strength, he likely can be resumed on his home dose of 10 mg daily. 3. Hyperphosphatemia. related to ESRD. He he is due for his dialysis today and he does continue on his PhosLo and is being transferred for dialysis. 4. Gout flare and right foot pain. Several days prior to this admission, the patient had presented to the emergency room with right foot pain. He was diagnosed with a sprain, although there had been no fall, and he was sent out with a walking boot. However, he continues to have discomfort at that very localized point. Plain films on the presentation earlier in the week demonstrated no acute injury, but did show calcifications related to diabetes and likely also to endstage kidney disease. This pain area did not seem to be consistent with calciphylaxis. The patient initially highly doubts that he had a gout flare as he had not had one in years; however, given the volume depletion , we gave a trial dose of prednisone and both his right foot pain and his right wrist pain, which he noticed when working with physical therapy were not improved, and he will continue 40 mg of prednisone for further management by the hospitalist at the [facility]. 5. Atrial fibrillation. His rate is controlled on no rate control medications. 6. Depression. His mood is stable on his mirtazapine. Although his affect seems flat to me, his actually says that she finds him to look better after the red cells and that he is a stoic man and he is basically at his baseline. DISCHARGE MEDICATIONS There are no changes to his home medications other than the addition of prednisone for his gout flare. He is discharged with: 1. Mirtazapine 45 mg each night. 2. Keppra 500 mg each night. 3. Midodrine hydrochloride 10 mg twice daily or 3 times daily as needed for orthostasis. The patient only uses this at dialysis. 4. Calcium acetate or PhosLo 1334 mg 3 times daily. 5. Warfarin. Currently on hold, but the patient takes 10 mg once daily. 6. Simvastatin 20 mg once daily. 7. Allopurinol 300 mg once daily. 8. Florinef 0.1 mg 3 times daily if needed. This is also for orthostasis, but it sounds like the patient primarily uses the midodrine. PHYSICAL EXAMINATION ON THE DAY OF TRANSFER VITAL SIGNS: He is afebrile at 36.6, blood pressure 138/75. Sitting, he was 143/ 70, which I checked myself. Respiratory rate 18, oxygen saturation 95% on room air this morning. There is a subsequent note of being 95% on 2 liters. GENERAL: The patient was sleeping soundly until I woke him up, and despite the abrupt awakening, he was oriented, recalled the reason for admission once he was given a second. He has a somewhat flat affect, although he is pleasant and understands the plan for the day. He was able to sit upright, sitting on the edge of the bed with me. When we tried to get him standing, he was able to pull up with a walker, but barely stand and sat back down again. HEAD, EARS, EYES, NOSE AND THROAT: His pupils are equal. Extraocular movements intact. Sclerae are nonmuddy and nonicteric, although they are injected on the lateral aspect of each. His oral mucosa is somewhat dry. NECK: Supple. He has a right old carotid endarterectomy scar. Sitting upright, his respirations are unlabored as they were when he was sleeping. He has no adventitious breath sounds. HEART: Notable for a slightly irregular S1, S2 with a rate of approximately 80. He has no peripheral edema. SKIN: Warm and dry. There is no diaphoresis. ABDOMEN: Rounded. There is an old midline scar. There is no appreciable organomegaly. Bowel sounds are really soft and nontender. His scrotum is somewhat larger on the left, which does not appear to be edematous and he reports that that is old and he is followed by a urologist. EXTREMITIES: Notable for current strength of the lower extremities, approximately 4/5 hip flexion and 4/5 plantar flexion and dorsiflexion. Hand spark plug assembler is 5/5. PLAN: Plan is for the patient to transfer to [facility]. Arrangements were made at 8 this morning and the patient had been discharged since 1 o'clock in the afternoon. JOB #: [id number] EXT JOB #:[id number] JESSA
== END 2016-07-05 13:00 | disposition short-term general hospital (02) | DRG 947 ==
LOC: EDUNIT# → ED 12:26 → OBSVTOIN 15:13 → MS 15:13 → INTOOBSV 15:13 → OBSVTOIN 07-04 12:20 → MS 07-04 20:54 → UNDODISIN 07-05 13:00
PROVIDERS: ADMIT Nurse Practitioner; ATTEND Nurse Practitioner
PROC: 30233N1 Transfusion of Nonautologous Red Blood Cells into Peripheral Vein, Percutaneous Approach (ICD-10-PCS; principal; 2016-07-04)
DX: R53.1 Weakness (principal); N18.6 End stage renal disease; I12.0 Hypertensive chronic kidney disease with stage 5 chronic kidney disease or end stage renal disease; E86.9 Volume depletion, unspecified; M10.9 Gout, unspecified; I48.2 Chronic atrial fibrillation; R73.9 Hyperglycemia, unspecified; D64.9 Anemia, unspecified; D63.1 Anemia in chronic kidney disease; F32.9 Major depressive disorder, single episode, unspecified; I48.92 Unspecified atrial flutter; I95.1 Orthostatic hypotension; Z99.2 Dependence on renal dialysis; E78.5 Hyperlipidemia, unspecified; E83.39 Other disorders of phosphorus metabolism; Z79.82 Long term (current) use of aspirin; Z79.01 Long term (current) use of anticoagulants; Z85.528 Personal history of other malignant neoplasm of kidney; Z79.899 Other long term (current) drug therapy; Z90.5 Acquired absence of kidney; Z86.73 Personal history of transient ischemic attack (TIA), and cerebral infarction without residual deficits; Z85.51 Personal history of malignant neoplasm of bladder; Z85.72 Personal history of non-Hodgkin lymphomas; Z95.3 Presence of xenogenic heart valve; Z95.828 Presence of other vascular implants and grafts; Z66 Do not resuscitate
CPT/HCPCS: 36415; 70450; 71020; 80048; 80053; 82040; 82310; 82550; 82553; 83036; 83690; 83735; 84100; 84450; 84460; 84484; 85025; 85610; 86850; 86900; 86901; 86920; 87040; 99283; 99285

== ENCOUNTER 2016-11-22 09:56 | Outpatient (CLI) | payer MEDICARE | END 2016-11-22 09:57 | disposition EMS.NT | LOC: EMS 09:56 | PROVIDERS: ATTEND Surgery | DX: R53.1 Weakness (principal) ==

== ENCOUNTER 2017-01-11 10:56 | Outpatient (CLI) | payer MEDICARE | END 2017-01-11 10:57 | disposition short-term general hospital (02) | LOC: EMS 10:56 | PROVIDERS: ATTEND Surgery | DX: T80.212A Local infection due to central venous catheter, initial encounter (principal) | CPT/HCPCS: A0425; A0429 ==

== ENCOUNTER 2017-01-20 09:16 | Outpatient (CLI) | payer MEDICARE | END 2017-01-20 09:17 | disposition critical access hospital (66) | LOC: EMS 09:16 | PROVIDERS: ATTEND Surgery | DX: S01.01XA Laceration without foreign body of scalp, initial encounter (principal); W18.30XA Fall on same level, unspecified, initial encounter; Y92.019 Unspecified place in single-family (private) house as the place of occurrence of the external cause | CPT/HCPCS: A0425; A0427 ==

== ENCOUNTER 2017-01-20 10:11 | Emergency (ER) | payer MEDICARE ==
--- NOTE | 2017-01-20 10:29 | ED Physician Documentation ---
History of Present Illness - Stated complaint Stated Complaint: GLF - Chief complaint Chief Complaint: Trauma Hd/Nk - Additonal information Additional information: hx from EMS and EMR and pt unwitnessed fall pt states using a walker and lost balance and fell over backwards no LOC reported by family per EMS EMS did not bring in meds or full med list but EMR notes hx a fib on coumadin pt has head neck R hip and R foot pain per EMS no recent fever cough NVD reported by family he has ESRD get dialysis [facility] and has not missed any sessions per EMS pt denies CP SOA palp and abd pain he is [employer] [place] and confused - per EMS family states this is baseline no family here in the ER at this time per hospitalist H&P last spring [facility] ESRD [facility] hx renal carcinoma s/p nephrectomy 2005 porcine aortic valve replacement a fib on coumadin, possible myelodysplasia, nodular lymphoma bladder cancer CVA HTN lipids updated meds unknown - EMS tried to call family from the ER but lost connection Review of Systems Constitutional: denies: Fever, Chills Cardiac: denies: Chest pain / pressure, Palpitations Respiratory: denies: Dyspnea GI: denies: Abdominal Pain, Nausea, Vomiting Skin: reports: Laceration (s) (scalp) Musculoskeletal: reports: Neck pain, Extremity pain (R hip and foot) Neurologic: reports: Headache, Head injury. denies: Focal weakness, Numbness Endocrine: reports: Easy bruising / bleeding Immunocompromised: denies: Immunocompromised PD PAST MEDICAL HISTORY - Past Medical History Cardiovascular: Hypertension, Atrial flutter, Atrial fibrillation, Murmur, Other Neuro: CVA Endocrine/Autoimmune: Other GI: GI bleed, Other : Dialysis, Renal insuffiency, Other HEENT: Chronic vision loss Psych: Depression - Past Surgical History Past Surgical History: Yes - Present Medications Home Medications: Ambulatory Orders Medication Instructions Recorded Confirmed Allopurinol 300 mg PO DAILY 07/27/13 01/20/17 Mirtazapine 45 mg PO QPM 07/27/13 01/20/17 Simvastatin 20 mg PO QPM 07/27/13 01/20/17 Calcium Acetate [Calcium Acetate] 1,334 mg PO TIDWM 07/03/16 01/20/17 Fludrocortisone Acetate 0.1 mg PO TID PRN 07/03/16 01/20/17 [Fludrocortisone Acetate] Midodrine HCl [Midodrine HCl] 10 mg PO BID PRN 07/03/16 01/20/17 Diltiazem HCl [Diltiazem 24Hr ER] 1 tab PO DAILY 01/20/17 01/20/17 Metoprolol Succinate 50 mg PO DAILY 01/20/17 01/20/17 - Allergies Allergies/Adverse Reactions: Allergies Allergy/AdvReac Type Severity Reaction Status Date / Time No Known Drug Allergies Allergy Verified 01/20/17 10:20 - Social History Does the pt smoke?: No Smoking Status: Former smoker Does the pt drink ETOH?: No Does the pt have substance abuse?: No - Immunizations Immunizations are current?: No - POLST Patient has POLST: No PD ED PE NORMAL - Vitals Vital signs reviewed: Yes - General General: Other (awake, answers questions, very [employer] [place], follows commands, seems confused) - HEENT HEENT: No: Atraumatic (lac to posterior scalp not actively bleeding) - Neck Neck: Other (+ TTP remains collared) - Cardiac Cardiac: RRR - Respiratory Respiratory: No respiratory distress, Clear bilaterally - Abdomen Abdomen: Soft, Non tender - Extremities Extremities: Other (no deformity but pain to R hip and R foot with ROM, + pulses , not short or rotated) - Neuro Neuro: No motor deficit, No sensory deficit. No: Alert and oriented X 3 Eye Opening: Spontaneous Motor: Obeys Commands Verbal: Confused GCS Score: 14 Results - Vitals Vitals: Vital Signs - 24 hr 01/20/17 01/20/17 01/20/17 10:13 10:28 11:51 Temperature 36.2 C L 36.8 C Heart Rate 93 85 82 Respiratory 18 14 18 Rate Blood Pressure 175/75 H 168/87 H 158/74 H O2 Saturation 94 92 100 01/20/17 01/20/17 12:34 12:51 Temperature 36.5 C Heart Rate 91 85 Respiratory 16 12 Rate Blood Pressure 155/77 H 155/67 H O2 Saturation 100 100 Oxygen O2 Source [] Room air O2 Source Room air - EKG (time done) 1017 Rate: Rate (enter#) Rhythm: Atrial fibrillation (not new per EMR) Ischemia: Other (slightly tall T waves V3 V4 only likely related to ESRD and K - has dialysis tomorrow) - Labs Labs: Laboratory Tests 01/20/17 01/20/17 01/20/17 10:30 10:30 10:30 WBC 8.5 RBC 2.48 L Hgb 8.6 L Hct 25.8 L MCV 104.1 H MCH 34.7 H MCHC 33.3 RDW 20.9 H Plt Count 139 MPV 9.7 Neut # 7.2 H Lymph # 0.6 L [place] # 0.4 Eos # 0.2 Baso # 0.1 Absolute Nucleated RBC 0.00 Nucleated RBC % 0.0 Manual Slide Review Indicated WBC Morphology NORMAL APPEARANCE Platelet Estimate NORMAL (130-450,000) Platelet Morphology NORMAL APPEARANCE RBC Morph Micro Appear 1+ MACROCYTOSIS PT INR Sodium 137 Potassium 5.6 H Chloride 95 L Carbon Dioxide 26 Anion Gap 16.0 H BUN 61 H Creatinine 7.1 H* Estimated GFR (MDRD) 8 L Glucose 155 H Calcium 9.5 Troponin I < 0.04 01/20/17 11:45 WBC RBC Hgb Hct MCV MCH MCHC RDW Plt Count MPV Neut # Lymph # [place] # Eos # Baso # Absolute Nucleated RBC Nucleated RBC % Manual Slide Review WBC Morphology Platelet Estimate Platelet Morphology RBC Morph Micro Appear PT 11.6 INR 1.0 Sodium Potassium Chloride Carbon Dioxide Anion Gap BUN Creatinine Estimated GFR (MDRD) Glucose Calcium Troponin I - Rads (name of study) CTH Radiology: See rad report (no skull fx or ICH) CT CS Radiology: See rad report CXR Radiology: See rad report (no acute) pelvis hip Radiology: See rad report (no acute) foot Radiology: See rad report (no acute) Procedures - Laceration (location) scalp Length in cm: 1.5 Wound type: Linear Neurovascular status: Sensory intact, Motor intact Anesthesia: OTH (none needed) Wound Preparation: Irrigated copiously NS (1 L), To the base. No: FB identified (not through galea) Skin layer closure: Stacy (2) Other: Patient tolerated well, No complications, Neurovascular intact, Tetanus booster given Complexity: Simple PD MEDICAL DECISION MAKING - ED course ED course: afib not new anemia not new k 5.6 [place] EKG changes due for dialysis tomorrow arrived and mental status is baseline apparently no longer on coumadin as INR 1 and states just asa wound repaired and will dc home for thanksgiving dinner feels comfortable taking him home, states at baseline, she has walker wheelchair, ramp, family and friends to help Departure - Departure Disposition: Home, Self Care Clinical Impression: Fall Qualifiers: Encounter type: initial encounter Qualified Code(s): W19.XXXA - Unspecified fall, initial encounter Head injury Qualifiers: Encounter type: initial encounter Qualified Code(s): S09.90XA - Unspecified injury of head, initial encounter Neck sprain Qualifiers: Encounter type: initial encounter Qualified Code(s): S13.9XXA - Sprain of joints and ligaments of unspecified parts of neck, initial encounter Condition: Good Instructions: ED Head Injury Closed Sleep Mon, ED Laceration Scalp Stitch Or Stap, ED Sprain Strain Neck, ED Prevention Fall Comments: The CT scans and xrays do not show any injury The EKG shows atrial fibrillation which is not new The labs were similar to prior - you are anemic and has kidney failure and his potassium is a little bit high but he has dialysis tomorrow Your wound has been george - the george should come out in 10 days. In the mean time wash the wound and appl,y antibiotic ointment every day. We washed the wound carefully but even with good wound care some cuts get infected - if you notice redness swelling or drainage come back to the ER Please use your walker at all times. Ice and tylenol as needed for pain
[2017-01-20 10:49] LABS: CALCIUM 9.5 mg/dL (8.5-10.3); POTASSIUM 5.6 mmol/L (3.5-5.0)
[2017-01-20 10:50] LABS: BASOPHILS # (AUTO) 0.1 10^3/uL (0.0-0.1); BASOPHILS % (AUTO) 1.2 %; CREATININE 7.1 mg/dL (0.6-1.2); EOSINOPHILS # (AUTO) 0.2 10^3/uL (0.0-0.7); EOSINOPHILS % (AUTO) 2.2 %; HCT - HEMATOCRIT 25.8 % (42.0-52.0); HGB - HEMOGLOBIN 8.6 g/dL (14.0-18.0); LYMPHOCYTES # (AUTO) 0.6 10^3/uL (1.5-3.5); LYMPHOCYTES % (AUTO) 7.6 %; MEAN CORPUSCULAR HEMOGLOBIN 34.7 pg (27.0-31.0); MEAN CORPUSCULAR HGB CONC 33.3 g/dL (32.0-36.0); MEAN CORPUSCULAR VOLUME 104.1 fL (80.0-94.0); MEAN PLATELET VOLUME 9.7 fL (7.4-11.4); MONOCYTES # (AUTO) 0.4 10^3/uL (0.0-1.0); MONOCYTES % (AUTO) 4.7 %; NEUTROPHILS # (AUTO) 7.2 10^3/uL (1.5-6.6); NEUTROPHILS % (AUTO) 84.3 %; RED BLOOD COUNT 2.48 10^6/uL (4.70-6.10); RED CELL DISTRIBUTION WIDTH 20.9 % (12.0-15.0); UNCORRECTED WHITE BLOOD COUNT 8.5 x10^3/uL; WHITE BLOOD COUNT 8.5 x10^3/uL (4.8-10.8)
[2017-01-20 11:23] LABS: PLATELET ESTIMATE, MANUAL NORMAL (130-450,000) (NORMAL); PLATELET MORPHOLOGY NORMAL APPEARANCE (NORMAL); WBC MORPHOLOGY (MULTIPLE) NORMAL APPEARANCE (NORMAL)
--- NOTE | 2017-01-20 11:26 | CT Preliminary Report ---
Exam: CT HEAD W/O IMPRESSION: 1. No acute intracranial abnormality. No significant change. 2. Mild ventriculomegaly. Normal pressure hydrocephalus would be a consideration, versus central atro phy. 3. Left parietal scalp and subgaleal soft tissue swelling/hematoma with laceration. [facility] SITE ID: [id number]
--- NOTE | 2017-01-20 11:28 | CT Report ---
EXAM: CT HEAD EXAM DATE: 01/20/2017 10:54 AM. CLINICAL HISTORY: Fall [place] coumadin confused. COMPARISON: CT scan of the head 07/03/2016. TECHNIQUE: Multiaxial CT images were obtained from the foramen magnum to the vertex. Reformats: Coron al. IV contrast: None. In accordance with CT protocol optimization, one or more of the following dose reduction techniques w ere utilized for this exam: automated exposure control, adjustment of mA and/or KV based on patient s ize, or use of iterative reconstructive technique. FINDINGS: Parenchyma: No intraparenchymal hemorrhage. No evidence of mass, midline shift, or CT findings of inf arction. Garcia-white differentiation is distinct. Extraaxial Spaces: Normal for age. No subdural or epidural collections identified. Ventricles: Asymmetric prominence to the ventricular system is seen relative to the overlying cortica l sulci. Increased callosal angle is noted. No acute hydrocephalus. No significant change. Sinuses and Orbits: Imaged paranasal sinuses, orbits, and mastoids show no significant abnormality. Bones: No evidence of fracture or calvarial defect. Moderate subgaleal and subcutaneous scalp soft ti ssue swelling/hematoma is seen overlying the high left parietal convexity. Fascial plane gas is seen consistent with laceration. No underlying skull fracture. Other: Moderate to marked vascular calcifications are seen involving intracranial ICA. IMPRESSION: 1. No acute intracranial abnormality. No significant change. 2. Mild ventriculomegaly. Normal pressure hydrocephalus would be a consideration, versus central atro phy. 3. Left parietal scalp and subgaleal soft tissue swelling/hematoma with laceration. [facility] Referring Provider Line: [phone] SITE ID: [id number]
--- NOTE | 2017-01-20 11:50 | XRAY Preliminary Report ---
Exam: XR CHEST 1 VIEW IMPRESSION: No convincing acute cardiopulmonary abnormality on this limited supine exam. [facility] SITE ID: [id number]
--- NOTE | 2017-01-20 11:52 | XRAY Report ---
EXAM: CHEST RADIOGRAPHY EXAM DATE: 01/20/2017 11:27 AM. CLINICAL HISTORY: Fall . COMPARISON: 07/03/2016. TECHNIQUE: 1 view. FINDINGS: Lungs/Pleura: Mild right basal atelectasis or scarring similar to prior. Mild scattered atelectasis. No gross evidence of pleural effusion or pneumothorax on this supine exam. Mediastinum: Prosthetic aortic valve. Borderline mild cardiomegaly similar to prior. Mild central pul monary vascular congestion. Mildly tortuous aorta with calcifications. Other: No obvious displaced fractures. IMPRESSION: No convincing acute cardiopulmonary abnormality on this limited supine exam. [facility] Referring Provider Line: [phone] SITE ID: [id number]
--- NOTE | 2017-01-20 11:52 | XRAY Preliminary Report ---
Exam: XR HIP W/PELVIS 2-3V RT IMPRESSION: 1. No definite acute fracture or malalignment. 2. Osteopenia. If there is clinical concern for radiographically occult fracture, CT is recommended for further eval uation. [facility] SITE ID: [id number]
[2017-01-20 11:55] LABS: PT - PROTHROMBIN TIME 11.6 secs (9.9-12.6)
--- NOTE | 2017-01-20 11:55 | XRAY Report ---
EXAM: RIGHT HIP AND PELVIS RADIOGRAPHY EXAM DATE: 01/20/2017 11:28 AM. HISTORY: Fall R hip pain. COMPARISONS: None. TECHNIQUE: 1 view of the pelvis and 1 view of the hip. FINDINGS: Bones: Overlying backboard material partially degrades evaluation for fracture. Bones appear osteopen ic. There is evidence of prior left hip ORIF with partially visualized hardware. No definite acute fr acture or malalignment. Joints: The bilateral hip, pubis symphysis, and sacroiliac joints are preserved. Soft Tissues: Normal. No soft tissue swelling. IMPRESSION: 1. No definite acute fracture or malalignment. 2. Osteopenia. If there is clinical concern for radiographically occult fracture, CT is recommended for further eval uation. [facility] Referring Provider Line: [phone] SITE ID: [id number]
--- NOTE | 2017-01-20 11:55 | XRAY Preliminary Report ---
Exam: XR FOOT 3 VIEW RT IMPRESSION: 1. No definite acute osseous abnormality. 2. Osteopenia. KOFID. [facility] SITE ID: [id number]
--- NOTE | 2017-01-20 11:57 | XRAY Report ---
EXAM: RIGHT FOOT RADIOGRAPHY EXAM DATE: 01/20/2017 11:29 AM. CLINICAL HISTORY: Fall R foot pain. COMPARISON: 07/01/2016. TECHNIQUE: 3 views. FINDINGS: Bones: No fractures or bone lesions. Diffuse osteopenia. Fusion of the second PIP joint. Joints: Mild DJD at the small joints of the foot. Moderate mid foot DJD. Soft Tissues: Diffuse arterial calcification. Dystrophic soft tissue calcification at the posterior a spect of the ankle. IMPRESSION: 1. No definite acute osseous abnormality. 2. Osteopenia. DJD. [facility] Referring Provider Line: [phone] SITE ID: [id number]
--- NOTE | 2017-01-20 12:01 | CT Preliminary Report ---
Exam: CT CERVICAL SPINE W/O IMPRESSION: 1. No acute cervical spine injury. No acute fracture or dislocation. 2. Levorotatory curvature of the cervical spine with rightward angulation of the upper thoracic spine . Mild kyphosis is seen centered at C4-C5. 3. Mild scattered cervical spondylosis as noted above. [facility] SITE ID: [id number]
--- NOTE | 2017-01-20 12:03 | CT Report ---
EXAM: CT CERVICAL SPINE WITHOUT CONTRAST DATE: 01/20/2017 10:58 AM. HISTORY: Fall HI neck pain. COMPARISONS: None. TECHNIQUE: Thin-section axial images were acquired of the cervical spine without contrast. Post-proce ssing: Coronal and sagittal reformats. Other: None. In accordance with CT protocol optimization, one or more of the following dose reduction techniques w ere utilized for this exam: automated exposure control, adjustment of mA and/or KV based on patient s ize, or use of iterative reconstructive technique. FINDINGS: Alignment: Mild kyphosis is seen centered at C4-C5. Mild levorotatory curvature of the cervical spine is seen. Rightward angulation of the upper thoracic spine is present. Bones: No fracture or bone lesion. Mild osteopenia is present. Interspace Levels/Facets: C1-C2: Sclerosis and hypertrophy is seen between the anterior arch of C1 and the odontoid process. C2-C3: Unremarkable. Mild dorsal disk bulge is seen. C3-C4: Unremarkable. Mild degenerative facet changes present. Mild right-sided degenerative uncoverte bral change. Central dorsal disk bulge. No stenosis. C4-C5: Mild right-sided and moderate left-sided degenerative facet change. Minimal spondylolisthesis. No stenosis. C5-C6: Mild loss of disk space height. Peripheral diskogenic endplate irregularity with subcortical c ystic change and sclerosis is seen greater to the right. Mild anterior and lateral osteophyte formati on. No stenosis. C6-C7: Mild loss of disk space height. Mild left-sided degenerative uncovertebral change. Mild left f oraminal stenosis. C7-T1: Unremarkable. Musculature: Normal. No fatty atrophy. Other: The paravertebral and prevertebral soft tissues are unremarkable. Moderate vascular calcificat ion is seen involving partially visualized CCA bifurcation. The lung apices are clear. IMPRESSION: 1. No acute cervical spine injury. No acute fracture or dislocation. 2. Levorotatory curvature of the cervical spine with rightward angulation of the upper thoracic spine . Mild kyphosis is seen centered at C4-C5. 3. Mild scattered cervical spondylosis as noted above. [facility] Referring Provider Line: [phone] SITE ID: [id number]
[2017-01-20] MEDS ORDERED: TETANUS/DIPHTHERIA/PERTUSSIS 0.5 ML SYRINGE IM ONE (12:35)
[2017-01-20] MEDS ORDERED: TETANUS/DIPHT/PERTUSS (PED) 0.5 ML VIAL IM ONE (12:47)
[2017-01-20 12:51] VITALS: BP 155/67
== END 2017-01-20 13:10 | disposition home or self-care (01) ==
LOC: EDUNIT# → ED 10:11
DX: S01.01XA Laceration without foreign body of scalp, initial encounter (principal); S13.4XXA Sprain of ligaments of cervical spine, initial encounter; W18.39XA Other fall on same level, initial encounter; Y92.019 Unspecified place in single-family (private) house as the place of occurrence of the external cause; D64.9 Anemia, unspecified; I48.91 Unspecified atrial fibrillation; I48.92 Unspecified atrial flutter; Z79.82 Long term (current) use of aspirin; R94.31 Abnormal electrocardiogram [ECG] [EKG]; I12.0 Hypertensive chronic kidney disease with stage 5 chronic kidney disease or end stage renal disease; N18.6 End stage renal disease; Z99.2 Dependence on renal dialysis; Z86.73 Personal history of transient ischemic attack (TIA), and cerebral infarction without residual deficits; Z85.528 Personal history of other malignant neoplasm of kidney; Z85.51 Personal history of malignant neoplasm of bladder; E78.5 Hyperlipidemia, unspecified; Z87.891 Personal history of nicotine dependence; Z95.4 Presence of other heart-valve replacement; Z23 Encounter for immunization
CPT/HCPCS: 12001; 70450; 71010; 72125; 80048; 84484; 85025; 85610; 90471; 93005; 99284

== ENCOUNTER 2017-01-21 11:48 | Outpatient (CLI) | payer MEDICARE | END 2017-01-21 11:49 | disposition short-term general hospital (02) | LOC: EMS 11:48 | PROVIDERS: ATTEND Surgery | DX: R40.1 Stupor (principal) | CPT/HCPCS: A0425; A0427 ==